=== PATIENT | female | born 1935 | race Caucasian/White ===

== ENCOUNTER 2016-12-04 19:11 | Emergency (ER) | payer MEDICARE, MEDICAID ==
[~2016-12-04] VITALS: Ht 165.1 cm; Wt 61.6 kg
[~2016-12-04 19:11] MED LIST: AMLO10TA2 PO; ATOR20TA9 PO; LEVO88TA4 PO; LISI-170 PO; OMEP-110 PO; SIMV40TA3 PO; TIMO5DRO5 LEFTEYE
[2016-12-04] MEDS ORDERED: SODIUM CHLORIDE FLUSH 10ML SYR IVF ONE (19:30)
[2016-12-04] MEDS ORDERED: SODIUM CHLORIDE 0.9% 1,000ML IVBOLUS ONE (19:30)
[2016-12-04 19:49] LABS: BLOOD UREA NITROGEN 15 mg/dL (7-18)
[2016-12-04 19:52] LABS: ASPARTATE AMINO TRANSFERASE 28 U/L (15-37)
[2016-12-04 20:58] LABS: PATH.CAST-FLAG NOT PRESENT; SPERM-FLAG NOT PRESENT; SRC-FLAG NOT PRESENT; XTAL-FLAG NOT PRESENT; YLC-FLAG NOT PRESENT
[2016-12-04 21:44] VITALS: BP 154/84
== END 2016-12-04 21:46 | disposition home or self-care (01) ==
LOC: ED 21:35
DX: N30.00 Acute cystitis without hematuria (principal); K52.9 Noninfective gastroenteritis and colitis, unspecified; E86.0 Dehydration; I10 Essential (primary) hypertension; K21.9 Gastro-esophageal reflux disease without esophagitis; E78.00 Pure hypercholesterolemia, unspecified; Z90.49 Acquired absence of other specified parts of digestive tract; Z87.891 Personal history of nicotine dependence
CPT/HCPCS: 36415; 71010; 80053; 81001; 85025; 87086; 87147; 93005; 99285

== ENCOUNTER 2016-12-14 15:38 | Emergency (ER) | payer MEDICARE, MEDICAID ==
[~2016-12-14] VITALS: Ht 165.1 cm; Wt 60.0 kg
[2016-12-14 15:56] VITALS: BP 149/71
[2016-12-14 16:39] LABS: ASPARTATE AMINO TRANSFERASE 25 U/L (15-37); BLOOD UREA NITROGEN 14 mg/dL (7-18)
[2016-12-14 18:03] LABS: PATH.CAST-FLAG NOT PRESENT; SPERM-FLAG NOT PRESENT; SRC-FLAG NOT PRESENT; XTAL-FLAG NOT PRESENT; YLC-FLAG NOT PRESENT
[2016-12-14] MEDS ORDERED: MAALOX/HYOSCYAMINE/LIDOCAINE 45 ML BOTTLE ONE (18:53)
[2016-12-14] MEDS ORDERED: MAALOX/HYOSCYAMINE/LIDOCAINE 45 ML BOTTLE PO ONE (19:00)
== END 2016-12-14 19:39 | disposition home or self-care (01) ==
LOC: ED 19:17
DX: R10.84 Generalized abdominal pain (principal); K21.9 Gastro-esophageal reflux disease without esophagitis; I10 Essential (primary) hypertension; E78.5 Hyperlipidemia, unspecified; E78.00 Pure hypercholesterolemia, unspecified; Z90.49 Acquired absence of other specified parts of digestive tract; Z87.891 Personal history of nicotine dependence
CPT/HCPCS: 36415; 80053; 81001; 83690; 85025; 87086; 93005; 99285

== ENCOUNTER 2017-07-16 14:01 | Emergency (ER) | payer MEDICARE, MEDICAID ==
[~2017-07-16] VITALS: Ht 165.1 cm; Wt 58.4 kg
[2017-07-16 16:52] VITALS: BP 135/72
== END 2017-07-16 18:13 | disposition home or self-care (01) ==
LOC: ED 17:11
DX: J00 Acute nasopharyngitis [common cold] (principal); K21.9 Gastro-esophageal reflux disease without esophagitis; E78.5 Hyperlipidemia, unspecified; I10 Essential (primary) hypertension; Z90.49 Acquired absence of other specified parts of digestive tract; Z87.891 Personal history of nicotine dependence
CPT/HCPCS: 87081; 87880; 99284

== ENCOUNTER 2017-07-21 03:55 | Emergency (ER) | payer MEDICARE, MEDICAID ==
[~2017-07-21] VITALS: Ht 165.1 cm; Wt 58.0 kg
[2017-07-21] MEDS ORDERED: PRAV10TA2 PO (04:07)
[2017-07-21] MEDS ORDERED: HYDR25TA6 PO (04:07)
[2017-07-21 04:40] LABS: HEMATOCRIT 42.1 % (34.6-47.8); HEMOGLOBIN 14.4 g/dL (11.7-16.4); WHITE BLOOD COUNT 7.2 x10^3/uL (3.4-10)
[2017-07-21 04:54] LABS: BLOOD UREA NITROGEN 24 mg/dL (7-18)
[2017-07-21 05:44] VITALS: BP 139/74
== END 2017-07-21 05:45 | disposition home or self-care (01) ==
LOC: ED 04:13
DX: J20.8 Acute bronchitis due to other specified organisms (principal); B96.89 Other specified bacterial agents as the cause of diseases classified elsewhere
CPT/HCPCS: 36415; 71020; 80048; 82040; 85025; 93005; 99285

== ENCOUNTER 2018-01-30 19:15 | Emergency (ER) | payer MEDICARE, MEDICAID ==
[~2018-01-30] VITALS: Ht 162.6 cm; Wt 56.0 kg
[~2018-01-30 19:15] MED LIST changes: +HYDR25TA6 PO; +PRAV10TA2 PO
[2018-01-30 19:46] LABS: BASOPHILS # (AUTO) 0.06 x10^3/uL (0-0.1); BASOPHILS % (AUTO) 1 % (0-1); EOSINOPHILS # (AUTO) 0.71 x10^3/uL (0-0.4); EOSINOPHILS % (AUTO) 6 % (1-7); LYMPHOCYTES # (AUTO) 1.96 x10^3/uL (1-3.4); LYMPHOCYTES % (AUTO) 16 % (22-44); MD NO; MEAN CORPUSCULAR HEMOGLOBIN 31.4 pg (27.0-34.8); MEAN CORPUSCULAR HGB CONC 33.7 g/dL (32.4-35.8); MEAN CORPUSCULAR VOLUME 93.4 fL (80-100); MEAN PLATELET VOLUME 8.4 fL (7.4-10.4); MONOCYTES # (AUTO) 1.07 x10^3/uL (0.2-0.8); MONOCYTES % (AUTO) 9 % (2-9); NEUTROPHILS # (AUTO) 8.14 x10^3/uL (1.8-6.8); NEUTROPHILS % (AUTO) 68 % (42-75); PLATELET COUNT 297 x10^3/uL (130-400); RED BLOOD COUNT 4.84 x10^6/uL (3.82-5.3); RED CELL DISTRIBUTION WIDTH 13.2 % (9.6-15.2)
[2018-01-30 19:50] LABS: MICROSCOPIC AUTO
[2018-01-30 19:53] LABS: CULTURE INDICATED? YES
[2018-01-30 19:55] LABS: ALBUMIN 3.4 g/dL (3.4-5.0); ANION GAP 6 mmol/L (5-15); CALCIUM 9.3 mg/dL (8.5-10.1); CHLORIDE 107 mmol/L (98-107); CREATININE 1.17 mg/dL (0.55-1.02)
[2018-01-30] MEDS ORDERED: CIPROFLOXACIN 500 MG TABLET PO ONE (20:30)
[2018-01-30] MEDS ORDERED: CIPROFLOXACIN 500 MG TABLET ONE (20:40)
[2018-01-30 20:43] VITALS: BP 186/77
== END 2018-01-30 21:32 | disposition home or self-care (01) ==
LOC: ED 21:25
DX: N30.90 Cystitis, unspecified without hematuria (principal); I10 Essential (primary) hypertension; E78.5 Hyperlipidemia, unspecified; E78.00 Pure hypercholesterolemia, unspecified; K21.9 Gastro-esophageal reflux disease without esophagitis
CPT/HCPCS: 36415; 80048; 81001; 82040; 82962; 85025; 87077; 87086; 87186; 99284

== ENCOUNTER 2018-06-08 00:09 | Emergency (ER) | payer MEDICARE, MEDICAID ==
[~2018-06-08] VITALS: Ht 167.6 cm; Wt 65.0 kg
[~2018-06-08 00:09] MED LIST changes: -AMLO10TA2 PO; +AMLO10TA6 PO
[2018-06-08 00:42] LABS: BASOPHILS # (AUTO) 0.04 x10^3/uL (0-0.1); BASOPHILS % (AUTO) 0 % (0-1); EOSINOPHILS # (AUTO) 0.94 x10^3/uL (0-0.4); EOSINOPHILS % (AUTO) 9 % (1-7); LYMPHOCYTES # (AUTO) 1.69 x10^3/uL (1-3.4); LYMPHOCYTES % (AUTO) 16 % (22-44); MD NO; MEAN CORPUSCULAR HEMOGLOBIN 32.3 pg (27.0-34.8); MEAN CORPUSCULAR HGB CONC 34.2 g/dL (32.4-35.8); MEAN CORPUSCULAR VOLUME 94.4 fL (80-100); MEAN PLATELET VOLUME 8.6 fL (7.4-10.4); MONOCYTES # (AUTO) 0.79 x10^3/uL (0.2-0.8); MONOCYTES % (AUTO) 7 % (2-9); NEUTROPHILS % (AUTO) 68 % (42-75); PLATELET COUNT 262 x10^3/uL (130-400); RED BLOOD COUNT 4.46 x10^6/uL (3.82-5.3); RED CELL DISTRIBUTION WIDTH 13.7 % (9.6-15.2)
[2018-06-08 00:53] LABS: ALBUMIN 3.3 g/dL (3.4-5.0); ANION GAP 9 mmol/L (5-15); CALCIUM 8.6 mg/dL (8.5-10.1); CHLORIDE 111 mmol/L (98-107)
[2018-06-08 00:56] LABS: ALANINE AMINOTRANSFERASE 20 U/L (12-78); ALKALINE PHOSPHATASE 101 U/L (45-117); BILIRUBIN,TOTAL 0.5 mg/dL (0.2-1.0); CREATININE 1.18 mg/dL (0.55-1.02)
[2018-06-08 01:22] VITALS: BP 132/86
[2018-06-08 01:23] LABS: CULTURE INDICATED? YES; MICROSCOPIC INDICATED
[2018-06-08 01:26] LABS: CLOSTRIDIUM DIFFICILE ANTIGEN NEGATIVE; CLOSTRIDIUM DIFFICILE TOXIN NEGATIVE (Negative)
== END 2018-06-08 02:09 | disposition home or self-care (01) ==
LOC: ED 00:21
DX: R19.7 Diarrhea, unspecified (principal); N30.00 Acute cystitis without hematuria; E78.5 Hyperlipidemia, unspecified; E78.00 Pure hypercholesterolemia, unspecified; I10 Essential (primary) hypertension; K21.9 Gastro-esophageal reflux disease without esophagitis; Z87.891 Personal history of nicotine dependence
CPT/HCPCS: 36415; 80053; 81001; 85025; 87086; 87324; 89055; 99284

== ENCOUNTER 2020-03-13 06:28 | Emergency (ER) | payer MEDICAID, MEDICARE ==
[~2020-03-13] VITALS: Ht 165.1 cm; Wt 56.0 kg
[~2020-03-13 06:28] MED LIST changes: -AMLO10TA6 PO; +AMLO10TA8 PO; +ATOR20TA37 PO; -ATOR20TA9 PO; +LEVO25TA4 PO; +LISI40TA PO; +SIMV40TA20 PO; -SIMV40TA3 PO
--- NOTE | 2020-03-13 06:58 | NUR ---
TOOK REPORT FROM VIKAS LAWSON ASSUME CARE AT THIS TIME. PT ABOUTLATED TO RESTROOM WITH STEADY GAIT, NO SOB.
--- NOTE | 2020-03-13 07:00 | NUR ---
Bib remsa. pt states this morning she was short of breath, but now reports that sob has improved since getting to the hospital. denies cough, CP. pt speaking in full sentences. no acute distress noted. denies pain.
[2020-03-13 07:21] LABS: BASOPHILS # (AUTO) 0.05 x10^3/uL (0-0.1); BASOPHILS % (AUTO) 1 % (0-1); EOSINOPHILS # (AUTO) 0.51 x10^3/uL (0-0.4); EOSINOPHILS % (AUTO) 9 % (1-7); LYMPHOCYTES # (AUTO) 1.46 x10^3/uL (1-3.4); LYMPHOCYTES % (AUTO) 24 % (22-44); MD NO; MEAN CORPUSCULAR HEMOGLOBIN 31.8 pg (27.0-34.8); MEAN CORPUSCULAR HGB CONC 32.8 g/dL (32.4-35.8); MEAN CORPUSCULAR VOLUME 97.1 fL (80-100); MEAN PLATELET VOLUME 7.8 fL (7.4-10.4); MONOCYTES % (AUTO) 7 % (2-9); NEUTROPHILS # (AUTO) 3.59 x10^3/uL (1.8-6.8); NEUTROPHILS % (AUTO) 60 % (42-75); PLATELET COUNT 286 x10^3/uL (130-400); RED BLOOD COUNT 4.48 x10^6/uL (3.82-5.3); RED CELL DISTRIBUTION WIDTH 13.2 % (9.6-15.2)
[2020-03-13 07:33] LABS: ALANINE AMINOTRANSFERASE 21 U/L (12-78); ALBUMIN 3.5 g/dL (3.4-5.0); ANION GAP 6 mmol/L (5-15); CALCIUM 8.7 mg/dL (8.5-10.1); CHLORIDE 112 mmol/L (98-107)
[2020-03-13 07:37] LABS: ALKALINE PHOSPHATASE 93 U/L (45-117); BILIRUBIN,TOTAL 0.5 mg/dL (0.2-1.0); TOTAL PROTEIN 7.3 g/dL (6.4-8.2); TROPONIN I < 0.015 ng/mL (0.000-0.045)
[2020-03-13 08:22] VITALS: BP 124/74
== END 2020-03-13 08:24 | disposition home or self-care (01) ==
LOC: ED 07:17
DX: R06.00 Dyspnea, unspecified (principal); K21.9 Gastro-esophageal reflux disease without esophagitis; E78.5 Hyperlipidemia, unspecified; I10 Essential (primary) hypertension; Z90.49 Acquired absence of other specified parts of digestive tract; Z90.722 Acquired absence of ovaries, bilateral; Z87.891 Personal history of nicotine dependence
CPT/HCPCS: 36415; 71045; 80053; 83880; 84484; 85025; 93005; 99285

== ENCOUNTER 2020-04-20 12:48 | Emergency (ER) | payer MEDICARE ==
[~2020-04-20] VITALS: Ht 165.1 cm; Wt 56.0 kg
--- NOTE | 2020-04-20 12:49 | NUR ---
SARA FROM HOME C/O SOB AND UPPER BACK PAIN, PT REPORTS SHE WAS OUTSIDE ON HER PATIO CHASING OUT A BIRD. PLACED ON VITALS AND CARDIAC MONITORS. FALL PRECAUTIONS IN PLACE.
[2020-04-20] MEDS ORDERED: AMLO2.5T5 PO (13:04)
[2020-04-20] MEDS ORDERED: FEXO60TA24 PO (13:04)
[2020-04-20] MEDS ORDERED: ATEN50TA41 PO (13:05)
[2020-04-20 13:23] VITALS: BP 154/72
[2020-04-20] MEDS ORDERED: SODIUM CHLORIDE FLUSH 10ML SYR IVF ONE (13:30)
--- NOTE | 2020-04-20 13:38 | NUR ---
PT RESTING ON JUDY MCBRIDE. CALL LIGHT WITHIN REACH.
--- NOTE | 2020-04-20 13:47 | NUR ---
ASSISTED PT TO RESTROOM.
[2020-04-20 13:51] LABS: BASOPHILS # (AUTO) 0.02 x10^3/uL (0-0.1); BASOPHILS % (AUTO) 0 % (0-1); EOSINOPHILS # (AUTO) 0.49 x10^3/uL (0-0.4); EOSINOPHILS % (AUTO) 8 % (1-7); LYMPHOCYTES # (AUTO) 1.68 x10^3/uL (1-3.4); LYMPHOCYTES % (AUTO) 25 % (22-44); MD NO; MEAN CORPUSCULAR HEMOGLOBIN 32.4 pg (27.0-34.8); MEAN CORPUSCULAR HGB CONC 33.3 g/dL (32.4-35.8); MEAN CORPUSCULAR VOLUME 97.3 fL (80-100); MEAN PLATELET VOLUME 8.1 fL (7.4-10.4); MONOCYTES % (AUTO) 9 % (2-9); NEUTROPHILS # (AUTO) 3.82 x10^3/uL (1.8-6.8); NEUTROPHILS % (AUTO) 58 % (42-75); PLATELET COUNT 284 x10^3/uL (130-400); RED CELL DISTRIBUTION WIDTH 12.9 % (9.6-15.2)
[2020-04-20 14:00] LABS: ALBUMIN 3.4 g/dL (3.4-5.0); ANION GAP 6 mmol/L (5-15); CALCIUM 9.2 mg/dL (8.5-10.1); CHLORIDE 111 mmol/L (98-107); CREATININE 1.23 mg/dL (0.55-1.02)
[2020-04-20 14:03] LABS: TROPONIN I < 0.015 ng/mL (0.000-0.045)
== END 2020-04-20 14:54 | disposition home or self-care (01) ==
LOC: ED 13:39
DX: R06.00 Dyspnea, unspecified (principal); R94.31 Abnormal electrocardiogram [ECG] [EKG]; X01.1XXA Exposure to smoke in uncontrolled fire, not in building or structure, initial encounter; I10 Essential (primary) hypertension; K21.9 Gastro-esophageal reflux disease without esophagitis; E78.5 Hyperlipidemia, unspecified; E78.00 Pure hypercholesterolemia, unspecified; Z90.49 Acquired absence of other specified parts of digestive tract; Z87.891 Personal history of nicotine dependence; Z90.721 Acquired absence of ovaries, unilateral
CPT/HCPCS: 36415; 71045; 80048; 82040; 83880; 84484; 85025; 93005; 99285

== ENCOUNTER 2021-01-01 04:45 | Emergency (ER) | payer MEDICARE ==
[~2021-01-01] VITALS: Ht 165.1 cm; Wt 55.0 kg
[~2021-01-01 04:45] MED LIST changes: +AMLO-211 PO; -AMLO10TA8 PO; +AMLO2.5T5 PO; +ATEN50TA41 PO; +FEXO60TA24 PO; -LISI40TA PO; +LISI40TA9 PO
--- NOTE | 2021-01-01 05:03 | NUR ---
PT C/O OF SOB, FREQUENT URINATION, AND DRY MOUTH EVERY MORNING X7 DAYS SINCE SHE BEGAN NITROFURATOIN FOR HER UTI. PT STATES SHE BELIEVES THIS IS BECAUSE OF HER MEDICINE. PT IN NAD. ATTACHED TO MONITORS. VSS WITH ELEVATED BP. BED IN LOW POSITION. CALL LIGHT AND BELONGINGS WITHIN REACH. PT IN NAD. TAKES LISINOPRIL, AMLODOPINE, LEVOTHYROXIN. HX OF HTN, HYPOTHYROIDISM. WCTM
[2021-01-01 05:41] LABS: BASOPHILS % (AUTO) 1 % (0-1); EOSINOPHILS % (AUTO) 13 % (1-7); LYMPHOCYTES % (AUTO) 27 % (22-44); MEAN CORPUSCULAR HEMOGLOBIN 33.3 pg (27.0-34.8); MEAN CORPUSCULAR HGB CONC 34.8 g/dL (32.4-35.8); MEAN PLATELET VOLUME 8.4 fL (7.4-10.4); MONOCYTES % (AUTO) 9 % (2-9); NEUTROPHILS % (AUTO) 50 % (42-75); PLATELET COUNT 275 x10^3/uL (130-400); RED BLOOD COUNT 4.27 x10^6/uL (3.82-5.3); RED CELL DISTRIBUTION WIDTH 13.2 % (9.6-15.2)
[2021-01-01 05:42] LABS: MD NO
--- NOTE | 2021-01-01 05:49 | NUR ---
STRAIGHT CATH PERFORMED PER MD ORDER WITH HERMAN CLEMONS RN PT UP TO COMMODE FOR SEABSTIAN YE, MOOK, MEDIUM SIZE. PT RETURNED BACK IN BED. CONTINUOUS MONITORING IN PLACE. VSS. PT IN NAD BED IN LOW POSITION. RAILS ENGAGED. CALL LIGHT WITHIN REACH.
[2021-01-01 05:52] LABS: MICROSCOPIC NOT IND
[2021-01-01 05:54] LABS: ALANINE AMINOTRANSFERASE 22 U/L (12-78); CHLORIDE 110 mmol/L (98-107)
[2021-01-01 05:58] LABS: ALBUMIN 3.2 g/dL (3.4-5.0); ALKALINE PHOSPHATASE 90 U/L (45-117); ANION GAP 7 mmol/L (5-15); BILIRUBIN,TOTAL 0.4 mg/dL (0.2-1.0); CALCIUM 9.2 mg/dL (8.5-10.1)
--- NOTE | 2021-01-01 06:52 | NUR ---
REPORT RECEIVED FROM NASREEN LAWSON
--- NOTE | 2021-01-01 06:52 | NUR ---
GAVE REPORT TO CHAPITO LAWSON
[2021-01-01 07:28] VITALS: BP 154/46
--- NOTE | 2021-01-01 07:29 | NUR ---
PRECEPTOR RN NOTE: REPORT TAKEN FROM RN NASREEN AT BEDSIDE, PT A&O, RESPS EVEN AND UNLABORED, SPEECH CLEAR. PT DENIES PAIN, DENIES SOB. SINUS TACH RATE 90'S WITHOUT ECTOPY. DC ORDERS RECEIVED, PT INFORMED OF POC, AGREEABLE.
--- NOTE | 2021-01-01 07:47 | NUR ---
PT GICEN DC INSTRUCTIONS INCLUDING PCP F/U REFERRAL, EDUCATED REGARDING RETURN CRITERIA. PT A&O, RESPS EVEN AND UNLABORED, NO N/V. PT AMBULATORY TO DC DESK WITH STEADY GAIT, UNASSISTED. ALL QUESTIONS ANSWERED.
== END 2021-01-01 07:47 | disposition home or self-care (01) ==
LOC: ED 06:11
DX: R30.0 Dysuria (principal); I10 Essential (primary) hypertension; K21.9 Gastro-esophageal reflux disease without esophagitis; E78.5 Hyperlipidemia, unspecified; Z90.49 Acquired absence of other specified parts of digestive tract; Z87.891 Personal history of nicotine dependence
CPT/HCPCS: 36415; 71045; 80053; 81003; 85025; 93005; 99285